=== PATIENT | female | born 1985 | race Caucasian/White ===

== ENCOUNTER 2018-05-27 09:30 | Emergency (ER) | payer MEDICAID ==
[~2018-05-27] VITALS: Ht 154.9 cm; Wt 49.9 kg
[2018-05-27 09:42] VITALS: BP 116/63
== END 2018-05-27 11:38 | disposition home or self-care (01) ==
LOC: ER 09:30
DX: M79.605 Pain in left leg (principal); Z88.0 Allergy status to penicillin
CPT/HCPCS: 93971